=== PATIENT | male | born 1935 | race Caucasian/White ===

== ENCOUNTER → 2020-01-09 | Outpatient (CLI) | payer OTHER, MEDICARE ==
[~2020-01-09] MED LIST: ADVIL100 M2 PO; ASPIRIN81 M2 PO; FIBER0.52 GM PO; FLONASE 0.05%50 MCG NASAL; HYDROCODON-ACE1 EAC8 PO; MULTIVITAMINS PO; ZOCOR 20 MG TAB20 M1 PO; ZYRTEC-D TABLE1 EAC1 PO
== END ==
LOC: SJCVC 11:46 → SJCVCIMAG 11:46
PROVIDERS: ATTEND Internal Medicine Cardiovascular Disease
DX: R94.31 Abnormal electrocardiogram [ECG] [EKG] (principal); I65.23 Occlusion and stenosis of bilateral carotid arteries; I25.10 Atherosclerotic heart disease of native coronary artery without angina pectoris; E78.00 Pure hypercholesterolemia, unspecified; I10 Essential (primary) hypertension; Z79.899 Other long term (current) drug therapy

== ENCOUNTER → 2020-01-17 | Outpatient (CLI) | payer OTHER, MEDICARE | LOC: SJCVCIMAG 07:26 | DX: R94.31 Abnormal electrocardiogram [ECG] [EKG] (principal); I08.8 Other rheumatic multiple valve diseases; I25.10 Atherosclerotic heart disease of native coronary artery without angina pectoris ==